=== PATIENT | female | born 1930 | race African-American/Black ===

== ENCOUNTER 2016-08-13 15:36 | Inpatient (IN) | payer MEDICARE, MEDICAID ==
[~2016-08-13] VITALS: Ht 165.1 cm; Wt 45.8 kg
[~2016-08-13 15:36] MED LIST: DILT360C17 PO; LISI40TA4 PO
--- NOTE | 2016-08-13 15:43 | NUR ---
bib family to r/o appendictis- sent by SHANA PAIGE. Patient received aao3, appears in no apparent distress, respiration even and uanbored. Pt's skin is warm to touch and non diaphoretic, patient afebrile. Vss. denies abdominal discomfort. Gowned and placed pt on tele monitor. Pending md maguire
--- NOTE | 2016-08-13 16:00 | NUR ---
Md Gutierres at bedside
[2016-08-13] MEDS ORDERED: IV NS 0.9% 1,000 ML ONE (16:41)
[2016-08-13 16:45] LABS: APPEARANCE,URINE Clear (CLEAR); BILIRUBIN,URINE Negative (NEGATIVE); BLOOD, URINE Negative Ery/uL (NEGATIVE); COLOR,URINE Yellow (YELLOW); KETONES,URINE Negative (NEGATIVE); LEUKOCYTE ESTERASE ,URINE Small (NEGATIVE); NITRITE, URINE Negative (NEGATIVE); PROTEIN,URINE Trace mg/dl (NEGATIVE); UGLUCOSE Negative (NEGATIVE); UROBILINOGEN,URINE 0.2 EU/dL (0.2)
[2016-08-13 16:51] LABS: HEMATOCRIT 32 % (33-45); HEMOGLOBIN 10.6 g/dL (11.5-14.8); MEAN CORPUSCULAR HEMOGLOBIN 30 PG (26.0-33.0); MEAN CORPUSCULAR HGB CONC 33 g/dl (31.0-36.0); MEAN CORPUSCULAR VOLUME 91 fL (82-100); PLATELET COUNT (AUTO) 290 /CMM (150-450); RDW COEFFICIENT OF VARIATION 15.4 (11.5-15.0); RED BLOOD CELL COUNT(AUTO) 3.51 MIL/uL (4.0-5.2); WHITE BLOOD COUNT (AUTO) 10.4 K/uL (4.3-11.0)
[2016-08-13] MEDS ORDERED: CT SWABBABLE VALVE TRANS SET 1 EA INFUS.SET MC ONE (17:00)
[2016-08-13] MEDS ORDERED: IOHEXOL-300 100 ML VIAL IV ONE (17:00)
[2016-08-13] MEDS ORDERED: IV NS 0.9% 1,000 ML BAG IV ONE (17:00)
[2016-08-13] MEDS ORDERED: IV NS 0.9% 250 ML IV ONE (17:00)
[2016-08-13 17:01] LABS: INR 0.95 (0.87-1.13); PROTHROMBIN TIME 9.9 SECS (9.5-12.7)
[2016-08-13 17:03] LABS: ALBUMIN 3.4 g/dL (3.4-5.0); BILIRUBIN,DIRECT 0.1 mg/dL (0.0-0.2); BILIRUBIN,TOTAL 0.4 mg/dL (0.2-1.0); CREATININE 1.8 mg/dL (0.6-1.3); POTASSIUM 4.2 mmol/L (3.5-5.1); TOTAL PROTEIN, SERUM 7.7 g/dL (6.4-8.2)
[2016-08-13 17:12] LABS: ADD URINE CULTURE YES; BACTERIA,URINE None seen /HPF (None Seen); RBC,URINE 0-2 /HPF (0-2); SQUAMOUS EPITHELIAL CELL,UR Many /HPF (None Seen)
[2016-08-13 18:07] LABS: BAND % (MANUAL) 2 % (0.0-5.0); EOSINOPHILS % (MANUAL) 5 % (0-4); LYMPHOCYTES % (MANUAL) 43 % (16-48); MONOCYTES % (MANUAL) 6 % (0-11.0); NEUTROPHILS % (MANUAL) 44 (42-76); PLATELET ESTIMATE ADEQUATE
[2016-08-13] MEDS ORDERED: IV SET PRIMARY PUMP SET 1 EA INFUS.SET MC ONE ×2 (18:29→21:47)
[2016-08-13] MEDS ORDERED: CEFTRIAXONE 1GM BAG (ER ONLY) 50 ML IV ONE (18:29)
[2016-08-13] MEDS ORDERED: CEFTRIAXONE 1GM BAG (ER ONLY) 1 GM/50 ML PIGGYBACK IV ONE (18:30)
[2016-08-13] MEDS ORDERED: GABA-532 PO (19:00)
[2016-08-13] MEDS ORDERED: DONE5TAB34 PO (19:00)
[2016-08-13] MEDS ORDERED: ALBU8.5H2 IH (19:00)
[2016-08-13] MEDS ORDERED: ASPI81TA2 PO (19:00)
[2016-08-13] MEDS ORDERED: BECL8.7A6 IH (19:00)
[2016-08-13] MEDS ORDERED: LISI-603 PO (19:00)
[2016-08-13] MEDS ORDERED: ASCO500T9 PO (19:00)
[2016-08-13] MEDS ORDERED: METO-302 PO (19:01)
[2016-08-13] MEDS ORDERED: ERGO50003 PO (19:01)
[2016-08-13] MEDS ORDERED: ALEN70TA45 PO (19:01)
[2016-08-13] MEDS ORDERED: METO25TA6 PO (19:18)
--- NOTE | 2016-08-13 19:47 | NUR ---
CALLED ([employer]ODUCT DEVELOPMENT MANAGER SURGEON), TRANSFERRED CALL TO
--- NOTE | 2016-08-13 19:54 | NUR ---
REPORT CALLED TO M/S UZMA PAUL. WILL TRANSPORT PT.
[2016-08-13 20:00] VITALS: BP 136/72
--- NOTE | 2016-08-13 20:03 | NUR ---
EPIC PAGED, DR.SIMONA Camejo FURNACE MAINTENANCE
--- NOTE | 2016-08-13 20:06 | NUR ---
er spoke to dr. isidoro smith pt admission.
[2016-08-13 20:20] VITALS: BP 136/72
[2016-08-13] MEDS ORDERED: MORPHINE SULFATE INJ 2 MG/ML DISP.SYRIN IV PRN (20:30)
[2016-08-13] MEDS ORDERED: MAGNESIUM HYDROXIDE 30 ML UDC PO PRN (20:30)
[2016-08-13] MEDS ORDERED: ONDANSETRON HCL/PF 4 MG/2 ML VIAL IVP PRN (20:30)
[2016-08-13] MEDS ORDERED: ZOLPIDEM TARTRATE 5 MG TABLET PO PRN (20:30)
[2016-08-13] MEDS ORDERED: ACETAMINOPHEN 325 MG TABLET PO PRN (20:30)
[2016-08-13] MEDS ORDERED: MAG HYDROX/AL HYDROX/SIMETH 30 ML UDC PO PRN (20:30)
[2016-08-13] MEDS ORDERED: Z GUARD REMEDY 2 OZ OINT TP PRN (20:30)
[2016-08-13] MEDS ORDERED: IV NS 0.9% 1,000 ML BAG IV PRN (20:30)
--- NOTE | 2016-08-13 20:49 | NUR ---
MS RN NOTES PER GRANDDAUGHTER IRLANDA, SHE IS THE DPOA FOR HER GRANDMOTHER, DPOA FORMS AND ADVANCED DIRECTIVE NEED TO BE NOTARIZED PER IRLANDA. DISCUSSED WITH PATIENT REGARDING RESUSCITATION WISHES, PER PATIENT OF NOW SHE WOULD LIKE TO BE FULL CODE.
[2016-08-13 20:56] LABS: AMYLASE 185 U/L (25-115); LIPASE 641 U/L (73-393)
[2016-08-13] MEDS ORDERED: METOPROLOL TARTRATE 25 MG TABLET PO SCH (22:00)
--- NOTE | 2016-08-13 22:00 | NUR ---
A 85 YEARS OLD FEMALE ADMITTED TO UNIT WITH THE DX OF POSS APPENDICITIS , PT IS A/O X 2-3 , BREATHING EVEN AND UNLABORED ON ROOM AIR, RAC 20 G PERIPHERAL IV INTACT AND PATENT , DENIED ANY PAIN AT THIS TIME. BED IN THE LOWEST/LOCKED POSITION , SAFETY MEASURES APPLIED, ALL ADMISSION ASSESSMENT DONE, GRANDDAUGHTER AT THE BED SIDE , ALL HX PROVIDED BY GRANDDAUGHTER .WILL CONTINUE OT MONITOR.
[2016-08-13] MEDS: DONEPEZIL 5 MG TABLET PO SCH (22:16)
[2016-08-13] MEDS: CIPROFLOXACIN IV RTU 200 MG in PREMIX 1 EA IV SCH (22:17)
[2016-08-13] MEDS ORDERED: SECONDARY IV SET 1 EA INFUS.SET MC ONE (22:26)
--- NOTE | 2016-08-14 | NUR ---
CLARIFIED IVF ORDER WITH DR ALLEN, VERBALIZED TO GIVE 0.9% NS A BOLUS AND TO CONTINUE D5 1/2 NS A CONTINUE IVF , ORDER NOTED AND CARRIED OUT.
--- NOTE | 2016-08-14 | NUR ---
RN NOTE; L ARM IV SITE NOTED INFILTRATION , REMOVED IV , ELEVATED ARM, APPLIED WARM COMPRESS , DOPPLAR STAT ON LEFT ARM ORDERED PER DR ALLEN . WILL CONTINUE TO MONITOR .
[2016-08-14] MEDS: IV D5/0.45 NACL 1,000 ML IV PRN (00:25)
[2016-08-14] MEDS: METRONIDAZOLE 500MG/ NS 100ML 500 MG in PREMIX 1 EA IV SCH ×4 (00:25→18:15)
--- NOTE | 2016-08-14 00:48 | NUR ---
CLARIFIED DIET ORDER WITH DR ALLEN , VERBALIZED PT IS NPO EXCEPT MEDS . ORDER NOTED AND CARRIED OUT.
[2016-08-14] MEDS ORDERED: ALBUTEROL FS 2.5 MG/3 ML VIAL.NEB NEB PRN (01:30)
[2016-08-14 04:00] VITALS: BP 141/64
--- NOTE | 2016-08-14 07:00 | NUR ---
RN EOS NOTE; PT REMAINED STABLE DURING THE SHIFT, NO ANY DISTRESS NOTED , IV SITE INTACT AND PATENT, IVF AND ATB TOLERATED WELL. ASSISTED TO RESTROOM, CLARIFIED INSERT CLEMENTE ORDER WITH DR ALLEN ,PT ABLE TO AMBULATE TO RESTROOM, ALL NEEDS ATTENDED PROMPTLY, CALL LIGHT WITHIN REACH. RADIOLOGY DEPT AWARE FOR ORDER OF DOPPLER OF LEFT ARM FOR SWELLING. WILL ENDORSE TO NEXT SHIFT RN FOR CONTINUITY OF CARE.
[2016-08-14 07:03] LABS: BASOPHILS # (AUTO) 0.1 /CMM (0.0-0.2); BASOPHILS % (AUTO) 0.8 % (0.0-2.0); EOSINOPHILS # (AUTO) 0.3 /CMM (0.0-0.7); EOSINOPHILS % (AUTO) 3.3 % (0.0-6.0); HEMATOCRIT 29 % (33-45); HEMOGLOBIN 9.2 g/dL (11.5-14.8); LYMPHOCYTES # (AUTO) 3.4 /CMM (0.8-4.8); LYMPHOCYTES % (AUTO) 35.2 % (20.0-44.0); MEAN CORPUSCULAR HEMOGLOBIN 29 PG (26.0-33.0); MEAN CORPUSCULAR HGB CONC 32 g/dl (31.0-36.0); MEAN CORPUSCULAR VOLUME 91 fL (82-100); MONOCYTES # (AUTO) 0.5 /CMM (0.1-1.30); MONOCYTES % (AUTO) 5.6 % (2.0-12.0); NEUTROPHILS # (AUTO) 5.4 /CMM (1.8-8.9); NEUTROPHILS % (AUTO) 55.1 % (43.0-81.0); PLATELET COUNT (AUTO) 261 /CMM (150-450); RDW COEFFICIENT OF VARIATION 15.9 (11.5-15.0); RED BLOOD CELL COUNT(AUTO) 3.13 MIL/uL (4.0-5.2); WHITE BLOOD COUNT (AUTO) 9.8 K/uL (4.3-11.0)
[2016-08-14 07:18] LABS: INR 0.96 (0.87-1.13); PROTHROMBIN TIME 10.3 SECS (9.5-12.7)
--- NOTE | 2016-08-14 07:20 | NUR ---
RN INITIAL NOTES: Received patient on bed during rounds, awake, alert and oriented x3 with periods of forgetfulness, able to make needs known, call lights placed within reached, instructed to press call light when in need of any assistance, patient verbalized understanding of instructions. On RA, saturating well. With right wrist IV PLug flushed with NS and patent, with IVF D5 1/2 NS at 75cc/hr infusing well. NO SOB, No LOC, respirations are even and unlabored, no acute distress noted. Kept clean and dry. Provided safety and comfort measures.NPO maintained. To continue to monitor accordingly.
[2016-08-14 07:21] LABS: ALBUMIN 2.7 g/dL (3.4-5.0); BILIRUBIN,TOTAL 0.5 mg/dL (0.2-1.0); CALCIUM, SERUM 9.2 mg/dL (8.5-10.1); CREATININE 1.5 mg/dL (0.6-1.3); MAGNESIUM 1.5 mg/dL (1.8-2.4); POTASSIUM 3.7 mmol/L (3.5-5.1); TOTAL PROTEIN, SERUM 6.2 g/dL (6.4-8.2)
[2016-08-14 07:27] LABS: THYROID STIMULATING HORMONE 2.876 uIU/mL (0.358-3.74)
[2016-08-14 08:00] VITALS: BP 157/83
--- NOTE | 2016-08-14 08:24 | NUR ---
RN NOTES: Granddaughter at bedside, upset, verbalizing that nobody updated them of patients condition since yesterday-referred to CN Soon. Hash Slinger Yossi informed by Soon that Lizeth wants to talk with her and noted to come. Dr. Patino paged a/w for call back re: this issue.
[2016-08-14] MEDS: CIPROFLOXACIN IV RTU 200 MG in PREMIX 1 EA IV SCH ×2 (10:02→20:28)
[2016-08-14] MEDS: PANTOPRAZOLE 40 MG VIAL IV SCH (10:03)
[2016-08-14] MEDS: ASCORBIC ACID 500 MG TABLET PO SCH (10:03)
[2016-08-14 10:27] LABS: IRON, SERUM 78 ug/dl (50-175); TOTAL IRON BINDING CAPACITY 245 ug/dl (250-450)
[2016-08-14] MEDS ORDERED: SECONDARY IV SET 1 EA INFUS.SET MC ONE (11:21)
[2016-08-14] MEDS: Magnesium 1GM/D5W 100ML PREMIX 100 ML IV SCH ×3 (11:26→17:02)
[2016-08-14] MEDS: hydrALAZINE HCL 50 MG TABLET PO SCH ×3 (12:06→17:00)
[2016-08-14] MEDS ORDERED: METOPROLOL SUCCINATE 25 MG TAB.SR.24H PO SCH (13:00)
--- NOTE | 2016-08-14 13:34 | NUR ---
RN NOTES: Seen and examined by Dr. janet Benavides today, updated granddaughter in detail, MD orders noted and carried out.
--- NOTE | 2016-08-14 14:02 | NUR ---
family refused AM xray
[2016-08-14 16:00] VITALS: BP 102/61
[2016-08-14] MEDS: METOPROLOL SUCCINATE 25 MG TAB.SR.24H PO SCH (17:00)
[2016-08-14] MEDS: BECLOMETHASONE DIPROPIONATE 40 MCG INH SCH (17:13)
[2016-08-14] MEDS ORDERED: ASPIRIN 81 MG TAB.CHEW PO SCH (18:00)
--- NOTE | 2016-08-14 18:46 | NUR ---
RN NOTES: Patient remain stable within shift, no signs and symptoms of distress noted. Afebrile. Maintain HOB elevated, aspiration precaution observed. ON IVF Hydration, encouraged increased oral fluid intake. Granddaughter satisfied with MD's update. Kept clean and dry. To endorsed to next shift for continuity of care.
[2016-08-14 20:00] VITALS: BP 146/75
--- NOTE | 2016-08-14 20:00 | NUR ---
RN INITIAL NOTE; PT ON THE BED RESTING, A/O X 3 WITH PERIODS OF FORGETFULNESS . FAMILY AT THE BED SIDE. BREATHING EVEN AND UNLABORED ON ROOM AIR, LW 22 G PERIPHERAL IV INTACT AND PATENT WITH CONTINUE IVF D5 1/2 NS @ 75 ML/HR. DENIED ANY PAIN AT THIS TIME. BED IN THE LOWEST/LOCKED POSITION , SAFETY MEASURES APPLIED, CALL LIGHT WITHIN REACH WILL CONTINUE OT MONITOR.
[2016-08-14] MEDS: DONEPEZIL 5 MG TABLET PO SCH (20:28)
--- NOTE | 2016-08-14 20:34 | NUR ---
RN NOTE; PER GRANDDAUGHTER'S REQUEST ,ARICEPT 5 MG AND AMBIEN 5 MG GIVEN BEFORE SCHEDULE.
[2016-08-15] MEDS: METRONIDAZOLE 500MG/ NS 100ML 500 MG in PREMIX 1 EA IV SCH ×3 (00:55→12:00)
[2016-08-15] MEDS: IV D5/0.45 NACL 1,000 ML IV PRN (00:55)
[2016-08-15 04:00] VITALS: BP 156/71
[2016-08-15 07:02] LABS: BASOPHILS # (AUTO) 0.1 /CMM (0.0-0.2); BASOPHILS % (AUTO) 0.7 % (0.0-2.0); EOSINOPHILS # (AUTO) 0.5 /CMM (0.0-0.7); EOSINOPHILS % (AUTO) 6.3 % (0.0-6.0); HEMATOCRIT 29 % (33-45); HEMOGLOBIN 9.3 g/dL (11.5-14.8); LYMPHOCYTES # (AUTO) 2.7 /CMM (0.8-4.8); LYMPHOCYTES % (AUTO) 32.1 % (20.0-44.0); MEAN CORPUSCULAR HEMOGLOBIN 29 PG (26.0-33.0); MEAN CORPUSCULAR HGB CONC 32 g/dl (31.0-36.0); MEAN CORPUSCULAR VOLUME 91 fL (82-100); MONOCYTES # (AUTO) 0.5 /CMM (0.1-1.30); MONOCYTES % (AUTO) 6.2 % (2.0-12.0); NEUTROPHILS # (AUTO) 4.6 /CMM (1.8-8.9); NEUTROPHILS % (AUTO) 54.7 % (43.0-81.0); PLATELET COUNT (AUTO) 242 /CMM (150-450); RDW COEFFICIENT OF VARIATION 16.5 (11.5-15.0); WHITE BLOOD COUNT (AUTO) 8.4 K/uL (4.3-11.0)
[2016-08-15 07:22] LABS: ALBUMIN 2.8 g/dL (3.4-5.0); BILIRUBIN,TOTAL 0.4 mg/dL (0.2-1.0); CALCIUM, SERUM 8.9 mg/dL (8.5-10.1); CREATININE 1.5 mg/dL (0.6-1.3); MAGNESIUM 2.2 mg/dL (1.8-2.4); PHOSPHORUS 3.3 mg/dL (2.5-4.9); TOTAL PROTEIN, SERUM 6.3 g/dL (6.4-8.2)
--- NOTE | 2016-08-15 07:29 | NUR ---
RN EOS NOTE; PT REMAINED STABLE DURING THE SHIFT, NO ANY DISTRESS NOTED , IV SITE INTACT AND PATENT, IVF AND ATB TOLERATED WELL. ALL NEEDS ATTENDED PROMPTLY, CALL LIGHT WITHIN REACH. BED ALARM ON. ENDORSED TO NEXT SHIFT RN FOR CONTINUITY OF CARE.
[2016-08-15 08:00] VITALS: BP 148/72
--- NOTE | 2016-08-15 08:00 | NUR ---
RN AM NOTES RECEIVED PATIENT AWAKE IN BED WITH FAMILY AT BEDSIDE. NO SOB OR DISTRESS NOTED. FOR POSSIBLE DISCHARGE TODAY. WILL CONTINUE TO MONITOR.
[2016-08-15] MEDS: PANTOPRAZOLE 40 MG VIAL IV SCH (08:43)
[2016-08-15] MEDS: CIPROFLOXACIN IV RTU 200 MG in PREMIX 1 EA IV SCH (08:43)
[2016-08-15] MEDS: ASCORBIC ACID 500 MG TABLET PO SCH (08:49)
[2016-08-15] MEDS: hydrALAZINE HCL 50 MG TABLET PO SCH (08:54)
[2016-08-15] MEDS: BECLOMETHASONE DIPROPIONATE 40 MCG INH SCH (08:56)
[2016-08-15] MEDS: METOPROLOL SUCCINATE 25 MG TAB.SR.24H PO SCH (10:28)
[2016-08-15] MEDS ORDERED: ALEN70TA45 PO (11:47)
[2016-08-15] MEDS ORDERED: DONE5TAB34 PO (11:47)
[2016-08-15] MEDS ORDERED: ASPI81TA2 PO (11:47)
[2016-08-15] MEDS ORDERED: BECL8.7A6 IH (11:47)
[2016-08-15] MEDS ORDERED: HYDR-4077 PO (11:47)
[2016-08-15] MEDS ORDERED: ERGO50003 PO (11:47)
[2016-08-15] MEDS ORDERED: ASCO500T9 PO (11:47)
[2016-08-15] MEDS ORDERED: CICL6.6S TP (11:47)
[2016-08-15] MEDS ORDERED: ZOLP5TAB2 PO (11:47)
[2016-08-15] MEDS ORDERED: ALBU8.5H2 IH (11:47)
[2016-08-15] MEDS ORDERED: METO-302 PO (11:47)
[2016-08-15] MEDS ORDERED: GABA-532 PO (11:47)
[2016-08-15 12:06] VITALS: BP 145/72
--- NOTE | 2016-08-15 14:00 | NUR ---
PACKAGING MACHINE OPERATOR NOTES PATIENT LEFT FACILITY ACCOMPANIED BY GRANDDAUGHTER IN STABLE CONDITION WITH DISCHARGE PACKET AND PERSONAL BELONGINGS. LEFT FACILITY SAFELY ESCORTED BY ESL TEACHER TO PRIVATE CAR.
--- NOTE | 2016-08-15 19:28 | NUR ---
MD TO CALL IN APPETITE STIMULANT TO [facility]. PATIENT AWARE.
[2016-08-16] MEDS ORDERED: ALENDRONATE 70 MG TABLET PO SCH (07:30)
[2016-08-16] MEDS ORDERED: ERGOCALCIFEROL (VITAMIN D 2) 50,000 UNIT CAPSULE PO SCH (21:00)
[2016-08-17 03:09] LABS: CANCER AG, 15-3 14.5 U/mL (0.0-25.0)
== END 2016-08-15 12:55 | disposition home or self-care (01) | DRG 438 ==
LOC: ER 15:46 → MEDSG1 19:58
PROVIDERS: ADMIT Internal Medicine; ATTEND Internal Medicine
DX: K85.90 Acute pancreatitis without necrosis or infection, unspecified (principal); G93.41 Metabolic encephalopathy; N17.9 Acute kidney failure, unspecified; N18.4 Chronic kidney disease, stage 4 (severe); M80.88XA Other osteoporosis with current pathological fracture, vertebra(e), initial encounter for fracture; N39.0 Urinary tract infection, site not specified; Z68.1 Body mass index [BMI] 19.9 or less, adult; K57.92 Diverticulitis of intestine, part unspecified, without perforation or abscess without bleeding; F03.90 Unspecified dementia, unspecified severity, without behavioral disturbance, psychotic disturbance, mood disturbance, and anxiety; K52.9 Noninfective gastroenteritis and colitis, unspecified; B35.1 Tinea unguium; D63.8 Anemia in other chronic diseases classified elsewhere; E11.22 Type 2 diabetes mellitus with diabetic chronic kidney disease; E83.42 Hypomagnesemia; E03.9 Hypothyroidism, unspecified; J44.9 Chronic obstructive pulmonary disease, unspecified; Z87.01 Personal history of pneumonia (recurrent); Z87.891 Personal history of nicotine dependence; Z90.49 Acquired absence of other specified parts of digestive tract; E88.09 Other disorders of plasma-protein metabolism, not elsewhere classified; R63.4 Abnormal weight loss; I34.0 Nonrheumatic mitral (valve) insufficiency; I35.1 Nonrheumatic aortic (valve) insufficiency; I12.9 Hypertensive chronic kidney disease with stage 1 through stage 4 chronic kidney disease, or unspecified chronic kidney disease; K37 Unspecified appendicitis; E86.0 Dehydration; Z79.899 Other long term (current) drug therapy
CPT/HCPCS: 36415; 71010-TC; 76705-TC; 80048-TC; 80053-TC; 80061-TC; 80076-TC; 81000-TC; 82150-TC; 82378; 82553-TC; 82746; 83540-TC; 83605-TC; 83690-TC; 83735-TC; 84100-TC; 84443-TC; 85025-TC; 85652-TC; 85730-TC; 86300; 86301; 86304; 87040-TC; 87081-TC; 87086-TC; 93307-TC; 93880-TC; 93971-TC; A4216; A4606; C9113; J0696; J0744; J3475; J3490; J7030; J7050; Q9967; Z7610